=== PATIENT | female | born 1980 | race Asian ===

== ENCOUNTER 2016-11-08 06:14 | Inpatient (IN) | payer BC ==
[2016-11-08] MEDS ORDERED: ceFAZolin 2 GM PREMIX (*) 2 GM/50 ML BAG IVPB ONE (06:49)
[2016-11-08] MEDS ORDERED: Sodium Citrate/Citric Acid* 15 ML UDC ONE (06:49)
[2016-11-08] MEDS ORDERED: OXYTOCIN* 10 UNITS/ML 1 ML VIAL ONE (07:23)
[2016-11-08] MEDS ORDERED: Morphine PF AMP (0.5MG/ML)* 5 MG/10 ML AMP ONE (07:23)
[2016-11-08] MEDS ORDERED: Phenylephrine IV* 40 MCG/ML 10 ML SYRINGE ONE (07:23)
[2016-11-08] MEDS ORDERED: Sodium Citrate/Citric Acid* 15 ML UDC PO ONE (07:30)
[2016-11-08] MEDS ORDERED: Buffered Lidocaine 1% SYR 3ML* 3 ML/SYR SYRINGE INTRADERM ONE (07:30)
[2016-11-08] MEDS ORDERED: ceFOXitin 2 GM IVPREMIX* 0 GM/0 ML BAG ONE (08:01)
[2016-11-08] MEDS ORDERED: Ondansetron INJ* 2 MG/ML VIAL IV PRN ×2 (08:50→08:52)
[2016-11-08] MEDS ORDERED: fentaNYL* 50 MCG/ML 2 ML VIAL (100 MCG VIAL) IV PRN (08:50)
[2016-11-08] MEDS ORDERED: oxyCODONE/Acetamin 5/325 MG* TAB PO PRN ×2 (08:52)
[2016-11-08] MEDS ORDERED: Naloxone* 0.4 MG/ML 1 ML VIAL IV PRN (08:52)
[2016-11-08] MEDS ORDERED: diPHENhydraMINE IV* 50 MG/ML 1 ml VIAL (BENADRYL) IV PRN (08:52)
[2016-11-08] MEDS ORDERED: Ondansetron INJ* 2 MG/ML VIAL ONE (09:02)
[2016-11-08] MEDS ORDERED: fentaNYL* 50 MCG/ML 2 ML VIAL (100 MCG VIAL) ONE (09:05)
[2016-11-08] MEDS ORDERED: Witch Hazel PAD* JAR TOPICAL PRN (09:35)
[2016-11-08] MEDS ORDERED: Acetaminophen TAB* 325 MG PO PRN (09:35)
[2016-11-08] MEDS ORDERED: Dibucaine 1% 28.35 GM TUBE PR PRN (09:35)
[2016-11-08] MEDS ORDERED: Glycerin ADULT SUPP PR PRN (09:35)
[2016-11-08] MEDS: Ketorolac INJ* 30 MG/ML 1 ML VIAL IV PRN ×2 (12:17→19:20)
[2016-11-08] MEDS: Simethicone TAB* 80 MG TAB.CHEW PO SCH ×4 (12:21→19:29)
[2016-11-08] MEDS: Docusate CAP* 100 MG PO SCH ×2 (15:10→19:20)
--- NOTE | 2016-11-08 21:53 | OP ---
DATE OF OPERATION: 11/08/16 - ROOM #117 DATE OF : 78 SURGEON: Shasha Moeller MD TOOL AND DIE ENGINEER: Rose Marie Acosta LM ANESTHESIOLOGIST: Dick Langston MD ANESTHESIA: Spinal. PRE-OP DIAGNOSIS: Intrauterine gestation at 39 and 1 week gestational age, prior section without operative record and baby in transverse presentation. POST-OP DIAGNOSIS: Intrauterine gestation at 39 and 1 week gestational age, prior section without operative record and baby in transverse presentation. OPERATIVE PROCEDURE: Repeat low transverse section. EBL: 800 mL. FLUID: Crystalloid. FINDINGS: Female , weight 7 pounds 4 ounces, Apgars of 9 and 9, normal appearing placenta, uterus with some scarring on the lower uterine segment and some scarring around the adnexal region. Otherwise, pelvic organs appear normal. COMPLICATIONS: None. DESCRIPTION OF PROCEDURE: After informed consent was signed, the patient was taken to the operating room where she was given a spinal anesthesia that was found to be adequate. She was prepped and draped in the dorsal supine position with a leftward tilt. A Pfannenstiel skin incision was made with the scalpel and the skin and carried down to the underlying layer of fascia with the scalpel. The fascia was incised on either side of the midline and the fascial incision was extended laterally with a combination of sharp and blunt dissection. The inferior edge of the fascial incision was grasped with Kenyon clamps, tented up and dissected down with sharp dissection with a Ca Scissors. The superior edge of the fascial incision was then grasped with Kenyon clamps, tented up and dissected down with sharp dissection with the Ca scissors. The scar tissue was grasped in the midline of the rectus muscles and carefully incised with the scalpel. The peritoneum was then entered bluntly and the peritoneal incision was extended with a combination of sharp and blunt dissection taking care to avoid injury to the bowel or the bladder. The bladder blade was inserted and a transverse incision was made in the lower uterine segment with a scalpel. The incision was extended superiorly and inferiorly with blunt pressure. The was delivered in breech presentation. The feet were first grasped and delivered through the incision followed quickly by the rest of the body. The right arm was rotated internally and delivered followed by the left arm in the same fashion. The head was then delivered in a flexed position. The cord was milked towards the baby, clamped x2 and cut and the baby was handed to the winding inspector and tester. Cord bloods were collected. The placenta delivered with fundal massage and gentle cord traction. The uterus was exteriorized and cleared of clots and debris. The uterine incision was closed with 0 Vicryl in a running locked fashion with a second layer of suture imbricating the first. Good hemostasis was noted. The abdomen was irrigated and the uterus was placed back into the abdominal cavity. Good hemostasis was noted once again at the uterine incision. The peritoneum was then closed with 3-0 chromic in a running unlocked fashion. The fascia was closed with 0 Vicryl in a running unlocked fashion and the skin was closed with 4-0 Monocryl in a running subcuticular fashion. Mastisol and Steri-Strips were placed and incision was dressed. The patient was moved to the stretcher and taken to the recovery room in stable condition. [id number]/CPS #: [id number]
[2016-11-09] MEDS ORDERED: Zolpidem TAB* 5 MG PO PRN (00:53)
[2016-11-09] MEDS ORDERED: oxyCODONE/Acetamin 5/325 MG* TAB PO PRN ×2 (00:53)
[2016-11-09] MEDS: Docusate CAP* 100 MG PO SCH ×4 (01:18→19:09)
[2016-11-09 06:00] LABS: Hematocrit 35 % (35-47); Hemoglobin 11.3 g/dl (12.0-16.0); Mean Corpuscular HGB Conc 33 g/dl (31-36); Mean Corpuscular Hemoglobin 27 pg (27-31); Mean Corpuscular Volume 84 fL (80-97); Mean Platelet Volume 11 um3 (7.4-10.4); Red Blood Count 4.12 10^6/ul (4.0-5.4); Red Cell Distribution Width 14 % (10.5-15); White Blood Count 14.3 10^3/ul (3.5-10.8)
[2016-11-09] MEDS: Ketorolac INJ* 30 MG/ML 1 ML VIAL IV PRN (06:37)
[2016-11-09] MEDS: Simethicone TAB* 80 MG TAB.CHEW PO SCH ×4 (08:19→19:09)
[2016-11-09] MEDS ORDERED: Ferrous Gluconate TAB* 324 MG TAB PO SCH (09:00)
[2016-11-09] MEDS: Ibuprofen TAB* 600 MG PO PRN ×2 (13:04→19:09)
[2016-11-10] MEDS: Ibuprofen TAB* 600 MG PO PRN ×3 (03:31→21:05)
[2016-11-10] MEDS: Docusate CAP* 100 MG PO SCH ×3 (09:27→21:01)
[2016-11-10] MEDS: Simethicone TAB* 80 MG TAB.CHEW PO SCH ×4 (09:27→21:01)
[2016-11-11 07:29] VITALS: BP 111/69
[2016-11-11] MEDS: Simethicone TAB* 80 MG TAB.CHEW PO SCH (09:19)
[2016-11-11] MEDS: Ibuprofen TAB* 600 MG PO PRN (09:19)
[2016-11-11] MEDS: Docusate CAP* 100 MG PO SCH (09:19)
== END 2016-11-11 12:04 | disposition home or self-care (01) | DRG 540 ==
LOC: MCHOB 06:14
PROVIDERS: ADMIT Obstetrics & Gynecology; ATTEND Obstetrics & Gynecology
PROC: 10D00Z1 Extraction of Products of Conception, Low, Open Approach (ICD-10-PCS; 2016-11-08)
PROC: 4A1HX4Z Monitoring of Products of Conception, Cardiac Electrical Activity, External Approach (ICD-10-PCS; principal; 2016-11-08 07:45)
DX: O34.211 Maternal care for low transverse scar from previous cesarean delivery (principal); O24.429 Gestational diabetes mellitus in childbirth, unspecified control; Z37.0 Single live birth; Z83.3 Family history of diabetes mellitus; Z82.49 Family history of ischemic heart disease and other diseases of the circulatory system; O09.523 Supervision of elderly multigravida, third trimester; O32.2XX0 Maternal care for transverse and oblique lie, not applicable or unspecified; Z3A.39 39 weeks gestation of pregnancy
CPT/HCPCS: 36415; 85025; A9270-GY; J0690; J0694; J1885; J2405; J2590; J3010

== ENCOUNTER 2017-04-01 15:34 | Emergency (ER) | payer BC ==
[2017-04-01 15:52] VITALS: BP 118/86
--- NOTE | 2017-04-01 17:02 | UC ---
UC General HPI - HPI Summary HPI Summary: The patient comes in today for: 1. Fever, pain in legs, and back, sore throat, coughing ("minor" cough 2-3 times"), nausea, bad taste in mouth, dry mouth, left ear pain, "feel too much cold," headache: Onset: 3 days ago. Palliative/provocative: ibuprofen 200 mg last night and this help the pain. Quality: Ache Region: back and legs and throat. Severity: 7/10 Time: Constant pain. Associated symptoms: Fever: temperature at home 102, and this morning it was 100. Yesterday highest it was 100. Vomitin vomiting over the last 24 hours. Diarrhea: None. Urination: Normal--light yellow. * - History of Current Complaint Chief Complaint: UCRespiratory Stated Complaint: VOMITING,FEVER,COLD Time Seen by Provider: 04/01/17 16:56 Hx Obtained From: Patient, Family/Mechanical Insulator - Allergy/Home Medications Allergies/Adverse Reactions: Allergies Allergy/AdvReac Type Severity Reaction Status Date / Time No Known Allergies Allergy Verified 04/01/17 15:53 PMH/Surg Hx/FS Hx/Imm Hx Previously Healthy: Yes Endocrine History Of: Denies: Diabetes, Thyroid Disease, Hyperthyroidism, Hypothyroidism, Dyslipidemia Cardiovascular History Of: Denies: Cardiac Disorders, Hypertension, Pacemaker/ICD, Myocardial Infarction , Congestive Heart Failure, Atrial Fibrillation, Deep Vein Thrombosis, Bleeding Disorders Respiratory History Of: Denies: COPD, Asthma, Bronchitis, Pneumonia, Pulmonary Embolism GI/ History Of: Denies: Gastroesophageal Reflux, Ulcer, Gastrointestinal Bleed, Gall Bladder Disease, Kidney Stones, Diverticulitis, Renal Disease, Urosepsis Neurological History Of: Denies: TIA, CVA, Dementia, Seizures, Migraine Psychological History Of: Denies: Anxiety, Depression, Bipolar Disorder, Schizophrenia, Post Traumatic Stress Disorder Cancer History Of: Denies: Lung Cancer, Colorectal Cancer, Breast Cancer, Prostate Cancer, Cervical Cancer Other History Of: Negative For: HIV, Hepatitis B, Hepatitis C, Anticoagulant Therapy - Surgical History Surgical History: Yes Surgery Procedure, Year, and Place: x 2 - Family History Known Family History: Positive: Cardiac Disease, Hypertension - Social History Occupation: Unemployed Lives: With Family Alcohol Use: None Substance Use Type: None Smoking Status (MU): Never Smoked Tobacco - Immunization History Most Recent Influenza Vaccination: unknown Most Recent Tetanus Shot: unknown Most Recent Pneumonia Vaccination: unknown Review of Systems Constitutional: Negative Skin: Negative Eyes: Negative ENT: Sore Throat, Ear Ache Respiratory: Cough Cardiovascular: Negative Gastrointestinal: Negative, Vomiting Genitourinary: Dysuria All Other Systems Reviewed And Are Negative: Yes Physical Exam Triage Information Reviewed: Yes Appearance: Well-Appearing, No Pain Distress, Well-Nourished Vital Signs: Initial Vital Signs Temp 101.4 F 04/01/17 15:49 Pulse 110 04/01/17 15:49 Resp 18 04/01/17 15:49 BP 118/86 04/01/17 15:49 Pulse Ox 99 04/01/17 15:49 Vital Signs Reviewed: Yes Eyes: Positive: Conjunctiva Clear. Negative: Discharge ENT: Positive: Hearing grossly normal, Other: - Mouth: mucous membranes pink and moist.. Negative: Pharyngeal erythema, Nasal congestion, Nasal drainage, TM bulging, TM dull, TM red, Tonsillar swelling, Tonsillar exudate Dental: Negative: Gross Decay/Caries @, Dental Fracture @ Neck: Positive: Supple, Nontender Respiratory: Positive: Lungs clear, No respiratory distress, No accessory muscle use. Negative: Rhonchi, Wheezing Cardiovascular: Positive: RRR, No Murmur Abdomen Description: Positive: No Organomegaly, Soft. Negative: Nontender - She has tenderness to deep palpation of the RUQ and LUQ and LLQ. No rebound., Distended, Guarding Musculoskeletal: Positive: Strength Intact, ROM Intact, No Edema Neurological: Positive: Alert, Muscle Tone Normal Psychological: Positive: Age Appropriate Behavior, Consolable Skin: Negative: rashes, breakdown Diagnostics - Laboratory Diagnostic Studies Completed/Ordered: Strep test: (-) Course/Dx - Course Course Of Treatment: Patient and her were told of the negative strep test. Treatment options were discussed. At this time, they would like medication for nausea though they were told that there is no helpful data about the safety of using it while breast feeding. They were told that if they do decide to use it to not breast feed. - Differential Dx - Multi-Symptom Provider Diagnoses: Viral syndrome. viral pharyngitis. Viral gastroenteritis Discharge - Discharge Plan Condition: Stable Disposition: HOME Patient Education Materials: Viral Syndrome (ED), Gastroenteritis (ED), Pharyngitis (ED) Referrals: No Primary Care Phys,NOPCP [Primary Care Provider] - 1 Week (Please see your primary care provider next week to see how well you are doing. If you don't have a primary care provider, please contact the physicians referral phone line to help you get one. If you can't get in timely, you can always come back to see us.) [facility] [place] [facility] [Outside] Additional Instructions: You may use [id number] Tylenol and/or ibuprofen.
[2017-04-01] MEDS ORDERED: Acetaminophen TAB* 325 MG PO ONE (17:13)
== END 2017-04-01 18:30 | disposition home or self-care (01) ==
LOC: UCEAST 15:34
DX: J02.8 Acute pharyngitis due to other specified organisms (principal); B34.9 Viral infection, unspecified; A08.4 Viral intestinal infection, unspecified
CPT/HCPCS: 87651; 99212; A9270-GY; G0463

== ENCOUNTER 2018-06-11 15:32 | Emergency (ER) | payer BC ==
--- NOTE | 2018-06-11 17:57 | UC ---
Throat Pain/Nasal Ezekiel HPI - HPI Summary HPI Summary: c/o clear nasal discharge, facial pain and ear pain , sore throat and pain on upper teeth for the past 3 days. Denies chills or fever. LMD 06-01-18. She states last time she had amoxil - History of Current Complaint Chief Complaint: UCRespiratory Stated Complaint: SORE THROAT Time Seen by Provider: 06/11/18 17:51 Hx Obtained From: Patient Hx Last Menstrual Period: 06/01/18 ?: No Onset/Duration: Sudden Onset, Lasting Days Severity: Moderate Pain Intensity: 7 Cough: Nonproductive Associated Signs & Symptoms: Positive: Sinus Discomfort, Nasal Discharge Related History: Seasonal Allergies - Allergies/Home Medications Allergies/Adverse Reactions: Allergies Allergy/AdvReac Type Severity Reaction Status Date / Time No Known Allergies Allergy Verified 06/11/18 16:10 Home Medications: Home Medications Acetaminophen TAB* [Tylenol TAB*] 500 mg PO ONCE 06/11/18 [History Confirmed 03/24] PMH/Surg Hx/FS Hx/Imm Hx Previously Healthy: Yes Other History Of: Negative For: HIV, Hepatitis B, Hepatitis C, Anticoagulant Therapy - Surgical History Surgical History: Yes Surgery Procedure, Year, and Place: x 2 - Family History Known Family History: Positive: Cardiac Disease, Hypertension - Social History Alcohol Use: None Substance Use Type: None Smoking Status (MU): Never Smoked Tobacco - Immunization History Most Recent Influenza Vaccination: unknown Most Recent Tetanus Shot: unknown Most Recent Pneumonia Vaccination: unknown Review of Systems ENT: Dental Pain, Sore Throat, Ear Ache, Nasal Discharge, Sinus Pain/Tenderness All Other Systems Reviewed And Are Negative: Yes Physical Exam Triage Information Reviewed: Yes Appearance: Well-Appearing, No Pain Distress, Well-Nourished Vital Signs: Initial Vital Signs Temp 98.9 F 06/11/18 16:07 Pulse 82 06/11/18 16:07 Resp 18 06/11/18 16:07 BP 130/82 06/11/18 16:07 Pulse Ox 100 06/11/18 16:07 Vital Signs Reviewed: Yes Eyes: Positive: Conjunctiva Clear ENT: Positive: Hearing grossly normal, Pharynx normal, TMs normal, Sinus tenderness - maxillary b/l Neck: Positive: Supple, Nontender, No Lymphadenopathy Respiratory: Positive: Chest non-tender, Lungs clear, Normal breath sounds, No respiratory distress Cardiovascular: Positive: RRR, No Murmur, Pulses Normal, Brisk Capillary Refill Throat Pain/Nasal Course/Dx - Course Course Of Treatment: start amoxil as prescribed, po fluids, start vaginal lotrimin to prevent yeast overgrowth, start flonase as indicated. Referred to dental and PCP - Differential Dx/Diagnosis Provider Diagnoses: acute maxillary sinusitis Discharge - Sign-Out/Discharge Documenting (check all that apply): Patient Departure - Discharge Plan Condition: Good Disposition: HOME Prescriptions: Amoxicillin PO (*) [Amoxicillin 875 MG (*)] 875 mg PO BID 10 Days #20 tab Clotrimazole 1% VAGINAL CREAM* [Gyne-Lotrimin 1% VAGINAL CREAM*] 1 applic VAGINAL DAILY #1 tube Fluticasone NASAL SPRAY 50MCG* [Flonase NASAL SPRAY 50MCG*] 2 spray BOTH NARES DAILY #1 btl Patient Education Materials: Amoxicillin (By mouth), Sinusitis (ED) Referrals: No Primary Care Phys,NOPCP [Primary Care Provider] - [facility] [place] [facility] [Outside] - Billing Disposition and Condition Condition: GOOD Disposition: Home
[2018-06-11] MEDS ORDERED: Amoxicillin PO (*) 500 MG CAP PO ONE (18:09)
[2018-06-11 18:20] VITALS: BP 138/80
== END 2018-06-11 18:10 | disposition home or self-care (01) ==
LOC: UCEAST 15:32
DX: J01.00 Acute maxillary sinusitis, unspecified (principal); Z82.49 Family history of ischemic heart disease and other diseases of the circulatory system
CPT/HCPCS: 87651; 99212; A9270-GY; G0463